=== PATIENT | female | born 1945 | race Caucasian/White ===

== ENCOUNTER 2018-02-19 00:02 | Emergency (ER) | payer MEDICARE, OTHER ==
[2018-02-19] MEDS ORDERED: Sodium Chloride 0.9% 1000 ML 1,000 ML IV STA (00:21)
[2018-02-19] MEDS ORDERED: Pepcid 20 MG VIAL IV ONE ×2 (00:21→00:33)
[2018-02-19] MEDS ORDERED: Zofran 4 MG/2 ML VIAL IV ONE (00:21)
[2018-02-19] MEDS ORDERED: MORPHINE SULFATE 4 MG INJ IV ONE (00:21)
--- NOTE | 2018-02-19 00:21 | ERPHSYRPT ---
- History of Present Illness Time Seen by Provider: 02/19/18 00:16 Historian: patient, EMS Exam Limitations: no limitations Physician History: The patient is a 72-year-old female brought in by ambulance from home where she complains of left-sided abdominal pain that began this evening in addition to 3 episodes of vomiting. She thinks she might have food poisoning. She denies a bowel movement or diarrhea. She has a history of constipation and takes laxatives in the morning and in the evening. She denies chest pain or shortness of breath. She denies sweating. She did not take any pain medicine because she wanted to arrive so we could see her "full blown pain". She denies urinary problems. She denies fever. Her past medical history is significant for hypercalcemia, bone tumor, and hypertension. Timing/Duration: today Activities at Onset: none Quality: aching Abdominal Pain Onset Location: flank (left) Pain Radiation: no radiation Severity of Pain-Max: moderate Severity of Pain-Current: moderate Modifying Factors: Improves With: vomiting Associated Symptoms: nausea, vomiting, No chest pain, No diarrhea, No shortness of breath, No syncope Previous symptoms: no prior history Allergies/Adverse Reactions: Penicillins Allergy (Verified 04/19/14 10:16) Sulfa (Sulfonamide Antibiotics) Allergy (Verified 04/19/14 05:57) Home Medications: Alendronate Sodium 70 mg [Fosamax 70 MG] 70 mg PO UD 05/14/14 [History] Bisoprolol/Hydrochlorothiazide [Bisoprolol-Hctz 10-6.25 mg Tab] 1 each PO DAILY 05/14/14 [History] Calcium Carbonate/Vitamin D3 [Calcium 600 + Vit D Caplet] 1 each PO UD 05/14/14 [History] Hydrocodone Bit/Acetaminophen [Hydrocodon-Acetaminophen 5-325] 1 each PO UD 01/16 [History] Hx Tetanus, Diphtheria Vaccination/Date Given: No Hx Influenza Vaccination/Date Given: No Hx Pneumococcal Vaccination/Date Given: No - Review of Systems Constitutional: No Fever, No Chills Eyes: No Symptoms Ears, Nose, & Throat: No Symptoms Respiratory: No Cough, No Dyspnea Cardiac: No Chest Pain, No Edema, No Syncope Abdominal/Gastrointestinal: Abdominal Pain, Nausea, Vomiting, Constipation, No Diarrhea Genitourinary Symptoms: No Dysuria Musculoskeletal: No Back Pain, No Neck Pain Skin: No Rash Neurological: No Dizziness, No Focal Weakness, No Sensory Changes Psychological: No Symptoms Endocrine: No Symptoms Hematologic/Lymphatic: No Symptoms Immunological/Allergic: No Symptoms All Other Systems: Reviewed and Negative - Past Medical History Pertinent Past Medical History: Yes Neurological History: No Pertinent History ENT History: No Pertinent History Cardiac History: Hypertension Respiratory History: Other Endocrine Medical History: Other Musculoskeletal History: Osteoarthritis, Osteoporosis GI Medical History: GERD History: No Pertinent History Psycho-Social History: No Pertinent History Female Reproductive Disorders: No Pertinent History Other Medical History: Approx 10 years s/p skin cancer removed from the back. Daughter stated that they found some growths possible on the thyroid just recently. Was just admitted in April for high calcium. - Past Surgical History Past Surgical History: Yes Neuro Surgical History: No Pertinent History Cardiac: No Pertinent History Respiratory: Other Musculoskeletal: No Pertinent History Female Surgical History: Section, Other Other Surgical History: D&C. 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 - Social History Smoking Status: Never smoker Exposure to second hand smoke: No Drug Use: none Patient Lives Alone: No - Nursing Vital Signs Nursing Vital Signs: Initial Vital Signs Temperature 99.5 F 02/19/18 00:03 Pulse Rate 74 02/19/18 00:03 Respiratory Rate 22 02/19/18 00:03 Blood Pressure 169/76 02/19/18 00:03 O2 Sat by Pulse Oximetry 99 02/19/18 00:03 Pain Scale Pain Intensity 8 - Physical Exam General Appearance: no apparent distress, alert Eye Exam: PERRL/EOMI, eyes nml inspection Ears, Nose, Throat Exam: normal ENT inspection, pharynx normal, moist mucous membranes Neck Exam: normal inspection, non-tender, supple, full range of motion Respiratory Exam: normal breath sounds, lungs clear, No respiratory distress Cardiovascular Exam: regular rate/rhythm, normal heart sounds Gastrointestinal/Abdomen Exam: tenderness (mild tenderness to left flank) Pelvic Exam: not done Rectal Exam: not done Back Exam: normal inspection, normal range of motion, No CVA tenderness, No vertebral tenderness Extremity Exam: normal inspection, normal range of motion, pelvis stable Neurologic Exam: alert, oriented x 3, cooperative, normal mood/affect, nml cerebellar function, sensation nml, No motor deficits Skin Exam: normal color, warm, dry SpO2 Interpretation: normal Oxygen Delivery: Room Air - Course EKG Interpreted by Me: RATE, Sinus Rhythm, NORMAL AXIS, NORMAL INTERVALS, NORMAL QRS, NORMAL ST-T, Other (comp EKG 05/16/14.) - CT Exams Abdomen/Pelvis CT Interpretation: Tele-radiologist Report (per Dr Garcia), Other (large obstructing stone in left uretropelvic junction; moderate left hydronephrosis wirh perinephric fat stranding.) Ordered Tests: Active Orders 24 hr Category Date Time Status Clean Catch Urine Specimen STAT Care 02/19/18 00:21 Active EKG-ER Only STAT Care 02/19/18 00:21 Active IV Insertion STAT Care 02/19/18 00:21 Active ABDOMEN AND PELVIS W/0 CONTRAS [CT] Stat Exams 02/19/18 00:22 Taken AMYLASE Stat Lab 02/19/18 00:20 Completed CBC W DIFF Stat Lab 02/19/18 00:20 Completed CMP Stat Lab 02/19/18 00:20 Completed LIPASE Stat Lab 02/19/18 00:20 Completed Lactic Acid Stat Lab 02/19/18 00:21 Results TROPONIN Q3H Lab 02/19/18 00:20 Completed TROPONIN Q3H Lab 02/19/18 03:30 Ordered TROPONIN Q3H Lab 02/19/18 06:30 Ordered TROPONIN Q3H Lab 02/19/18 09:30 Ordered TROPONIN Q3H Lab 02/19/18 12:30 Ordered UA W/RFX UR CULTURE Stat Lab 02/19/18 01:45 Received Medication Summary Generic Name Dose Route Start Last Admin Trade Name Freq PRN Reason Stop Dose Admin Potassium Chloride 20 meq in 100 mls @ 50 mls/hr 02/19/18 00:47 02/19/18 01: 21 Potassium Chloride 20 Meq In Water 100ml IV 02/19/18 02:46 50 mls/hr STAT ONE Administration Discontinued Medications Generic Name Dose Route Start Last Admin Trade Name Freq PRN Reason Stop Dose Admin Famotidine 20 mg 02/19/18 00:21 02/19/18 00:40 Pepcid 20 Mg Vial IV 02/19/18 00:22 20 mg STAT ONE Administration Famotidine Confirm 02/19/18 00:33 Pepcid 20 Mg Vial Administered 02/19/18 00:34 Dose 20 mg IV .STK-MED ONE Sodium Chloride 1,000 mls @ 999 mls/hr 02/19/18 00:21 02/19/18 00:44 Sodium Chloride 0.9% 1000 Ml IV 02/19/18 01:21 999 mls/hr .Q1H1M STA Administration Sodium Chloride Confirm 02/19/18 00:33 Sodium Chloride 0.9% 1000 Ml Administered 02/19/18 00:34 Dose 1,000 mls @ ud .ROUTE .STK-MED ONE Potassium Chloride Confirm 02/19/18 01:18 Potassium Chloride 20 Meq In Water 100ml Administered 02/19/18 01:19 Dose 100 mls @ ud IV .STK-MED ONE Morphine Sulfate 4 mg 02/19/18 00:21 02/19/18 00:40 Morphine Sulfate 4 Mg Inj IV 02/19/18 00:22 4 mg STAT ONE Administration Morphine Sulfate Confirm 02/19/18 00:33 Morphine Sulfate 4 Mg Inj Administered 02/19/18 00:34 Dose 4 mg .ROUTE .STK-MED ONE Ondansetron HCl 4 mg 02/19/18 00:21 02/19/18 00:39 Zofran 4 Mg/2 Ml Vial IV 02/19/18 00:22 4 mg STAT ONE Administration Ondansetron HCl Confirm 02/19/18 00:33 Zofran 4 Mg/2 Ml Vial Administered 02/19/18 00:34 Dose 4 mg .ROUTE .STK-MED ONE Lab/Rad Data: Laboratory Result Diagrams 02/19/18 00:20 02/19/18 00:20 Laboratory Results 02/19/18 02/19/18 02/19/18 Range/Units 00:21 00:20 00:20 WBC (4.0-10.5) K/mm3 RBC (4.1-5.4) M/mm3 Hgb (12.0-16.0) gm/dl Hct (35-47) % MCV (78-100) fl MCH (26-32) pg MCHC (32-36) g/dl RDW (11.5-14.0) % Plt Count (150-450) K/mm3 MPV (6-9.5) fl Gran % (36.0-66.0) % Eos # (Auto) (0-0.5) Absolute Lymphs (auto) (1.0-4.6) Absolute Monos (auto) (0.0-1.3) Lymphocytes % (24.0-44.0) % Monocytes % (0.0-12.0) % Eosinophils % (0.00-5.0) % Basophils % (0.0-0.4) % Absolute Granulocytes (1.4-6.9) Basophils # (0-0.4) Sodium 137 (137-145) mmol/L Potassium 3.1 L (3.5-5.1) mmol/L Chloride 101 (98-107) mmol/L Carbon Dioxide 25 (22-30) mmol/L Anion Gap 14.0 (5-15) MEQ/L BUN 26 H (7-17) mg/dL Creatinine 1.13 H (0.52-1.04) mg/dL Estimated GFR 50.6 ML/MIN Glucose 112 H (74-106) mg/dL Lactic Acid 3.4 H (0.4-2.0) Calcium 10.8 H (8.4-10.2) mg/dL Total Bilirubin 0.90 (0.2-1.3) mg/dL AST 24 (14-36) U/L ALT 18 (0-35) U/L Alkaline Phosphatase 87 (38-126) U/L Troponin I < 0.012 (0.000-0.034) ng/mL Serum Total Protein 6.1 L (6.3-8.2) g/dL Albumin 4.0 (3.5-5.0) g/dL Amylase 92 (30-110) U/L Lipase 220 (23-300) U/L 02/19/18 Range/Units 00:20 WBC 12.2 H (4.0-10.5) K/mm3 RBC 4.35 (4.1-5.4) M/mm3 Hgb 13.1 (12.0-16.0) gm/dl Hct 39.1 (35-47) % MCV 89.9 (78-100) fl MCH 30.1 (26-32) pg MCHC 33.5 (32-36) g/dl RDW 13.4 (11.5-14.0) % Plt Count 208 (150-450) K/mm3 MPV 11.3 H (6-9.5) fl Gran % 97.4 H (36.0-66.0) % Eos # (Auto) 0.02 (0-0.5) Absolute Lymphs (auto) 0.17 L (1.0-4.6) Absolute Monos (auto) 0.11 (0.0-1.3) Lymphocytes % 1.4 L (24.0-44.0) % Monocytes % 0.9 (0.0-12.0) % Eosinophils % 0.2 (0.00-5.0) % Basophils % 0.1 (0.0-0.4) % Absolute Granulocytes 11.89 H (1.4-6.9) Basophils # 0.01 (0-0.4) Sodium (137-145) mmol/L Potassium (3.5-5.1) mmol/L Chloride (98-107) mmol/L Carbon Dioxide (22-30) mmol/L Anion Gap (5-15) MEQ/L BUN (7-17) mg/dL Creatinine (0.52-1.04) mg/dL Estimated GFR ML/MIN Glucose (74-106) mg/dL Lactic Acid (0.4-2.0) Calcium (8.4-10.2) mg/dL Total Bilirubin (0.2-1.3) mg/dL AST (14-36) U/L ALT (0-35) U/L Alkaline Phosphatase (38-126) U/L Troponin I (0.000-0.034) ng/mL Serum Total Protein (6.3-8.2) g/dL Albumin (3.5-5.0) g/dL Amylase (30-110) U/L Lipase (23-300) U/L - Progress Progress: improved Progress Note: 02/19/18 02:[address] Ladd and Dr Parikh at [facility]. Drs accept pt. - Departure Time of Disposition: 02:11 Departure Disposition: Transfer (Transfer to [facility] ER per Dario Ladd and Jl.) Clinical Impression: Kidney stone on left side, Hypokalemia Condition: Stable Critical Care Time: No Referrals: MATHEW PATEL MD [NON-STAFF PHY W/O PRIVILEGES] -
[2018-02-19] MEDS ORDERED: Zofran 4 MG/2 ML VIAL ONE (00:33)
[2018-02-19] MEDS ORDERED: Sodium Chloride 0.9% 1000 ML 1,000 ML ONE (00:33)
[2018-02-19] MEDS ORDERED: MORPHINE SULFATE 4 MG INJ ONE (00:33)
[2018-02-19 00:34] LABS: Lactic Acid 3.4 (0.4-2.0)
[2018-02-19 00:37] LABS: BASOPHIL % 0.1 % (0.0-0.4); Basophil (Absolute #) 0.01 (0-0.4); Eosinophil % 0.2 % (0.00-5.0); Eosinophil (Absolute #) 0.02 (0-0.5); Granulocyte Absolute (ANC) 11.89 (1.4-6.9); Granulocytes % 97.4 % (36.0-66.0); Hematocrit 39.1 % (35-47); Hemoglobin 13.1 gm/dl (12.0-16.0); Lymphocyte (Absolute #) 0.17 (1.0-4.6); Lymphocytes % 1.4 % (24.0-44.0); Mean Cell Volume 89.9 fl (78-100); Mean Corpuscular Hemoglobin 30.1 pg (26-32); Mean Corpuscular Hgb Concent. 33.5 g/dl (32-36); Mean Platelet Volume 11.3 fl (6-9.5); Monocyte (Absolute #) 0.11 (0.0-1.3); Monocytes % 0.9 % (0.0-12.0); Platelet Count 208 K/mm3 (150-450); Red Blood Count 4.35 M/mm3 (4.1-5.4); Red Cell Distribution Width 13.4 % (11.5-14.0); White Blood Count 12.2 K/mm3 (4.0-10.5)
[2018-02-19] MEDS ORDERED: POTASSIUM CHLORIDE 20 mEq IN WATER 100ML 20 MEQ/100 ML BAG IV ONE (00:47)
[2018-02-19 00:51] LABS: BILIRUBIN,TOTAL 0.9 mg/dL (0.2-1.3); Calcium 10.8 mg/dL (8.4-10.2); Creatinine 1 1.13 mg/dL (0.52-1.04); Potassium 3.1 mmol/L (3.5-5.1); Total Protein 6.1 g/dL (6.3-8.2)
[2018-02-19] MEDS ORDERED: POTASSIUM CHLORIDE 20 mEq IN WATER 100ML 100 ML IV ONE (01:18)
[2018-02-19] MEDS ORDERED: ROCEPHIN 1 Gm-D5w 50 ml Bag** 1 G/50 ML IVPB IV STA (02:12)
[2018-02-19 02:17] LABS: Appearance CLOUDY (CLEAR); Bilirubin NEGATIVE (NEGATIVE); Blood MODERATE Ery/ul (0-5); Glucose NEGATIVE (NEGATIVE); Ketones TRACE (NEGATIVE); Leukocyte Esterase LARGE (NEGATIVE); Nitrite POSITIVE (NEGATIVE); Protein,Urine Dip 30 (Negative); Specific Gravity 1.016 (1.005-1.025); Urobilinogen NEGATIVE mg/dL (0-1)
[2018-02-19] MEDS ORDERED: ROCEPHIN 1 Gm-D5w 50 ml Bag** 1 G/50 ML IVPB IV ONE (02:22)
[2018-02-19 02:37] VITALS: BP 136/84; PULSE 84; O2SAT 97
--- NOTE | 2018-02-19 10:42 | XRAY ---
Indication: Left upper quadrant pain. Nausea and vomiting. Multiple contiguous axial images obtained through the abdomen and pelvis without contrast as ordered. Comparison: May 15, 2014. Lung bases demonstrates scattered bibasilar atelectasis/scarring. Left lung base 2-3 mm noncalcified subpleural nodularity incompletely visualized and potentially obscured by previous pleural parenchymal opacity. No infiltrate or effusion. Heart is not enlarged. New small hiatal hernia. Noncontrasted stomach and bowel loops appear nonobstructed. Descending and sigmoid colon now demonstrates circumferential wall thickening with minimal stranding favoring colitis. No free fluid/air. Minimal sigmoid diverticulosis. New 8-9 mm proximal left ureter calculus, approximately L3 level. Left kidney is also moderately hydronephrotic with perinephric stranding/fluid consistent with obstructive uropathy additional bilateral renal medical calculi. Stable 2 cm left adrenal adenoma, hepatic/splenic calcified granulomas, and 1.5 cm caudate lobe hepatic cyst. New tiny gallstone. Remaining liver, gallbladder, pancreas, spleen, adrenal glands, kidneys, ureters, bladder, and uterus appear unremarkable for noncontrast exam. Mild aortoiliac calcifications without AAA Osseous structures intact again with osteopenia, moderate/advanced multilevel degenerative spondylosis, and moderate levorotoscoliosis. Slight increasing round 10 mm right innominate sclerotic lesion, previously 5 mm. No ventral or inguinal hernias. Impression: 1. New 8-9 mm maximal left ureter calculus producing high-grade obstruction. Additional bilateral renal micro-calculi. 2. New descending and sigmoid bowel wall thickening with minimal stranding. Rule out colitis. Minimal sigmoid diverticulosis. 3. New hiatal hernia and tiny gallstone. 4. Stable hepatic cyst, left adrenal adenoma, and evidence for old granulomatous disease. 5. Increasing right innominate round sclerotic lesion. Nuclear medicine bone scan may yield further information if clinically warranted. Comment: Preliminary interpretation was made by [facility]. No critical discrepancy. CTDI 20.15
== END 2018-02-19 03:00 | disposition short-term general hospital (02) ==
LOC: ED 00:02
DX: N20.0 Calculus of kidney (principal); E87.6 Hypokalemia; R11.2 Nausea with vomiting, unspecified; Z79.899 Other long term (current) drug therapy; K59.00 Constipation, unspecified
CPT/HCPCS: 36000; 36415; 74176; 80053; 81001; 82150; 83605; 83690; 84484; 85025; 87077; 87086; 87186; 93005; 96360; 96365; 96367; 96374; 96375; 99285; J0696; J2270; J2405; J3480

== ENCOUNTER 2019-05-06 18:07 | Emergency (ER) | payer MEDICARE, OTHER ==
[2019-05-06] MEDS ORDERED: Sodium Chloride 0.9% 1000 ML 1,000 ML IV STA (18:25)
[2019-05-06] MEDS ORDERED: Sodium Chloride 0.9% 1000 ML 1,000 ML ONE (18:38)
--- NOTE | 2019-05-06 18:43 | ERPHSYRPT ---
- History of Present Illness Source: patient, family, EMS Exam Limitations: clinical condition Patient Subjective Stated Complaint: EMS states "Family told us they found her on the floor, unknown how long she had been there. She is alert to name but cannot answer quite a few questions. I attempted an IV without success. she has had a cough for a week according to family". Pt states "I hurt." Triage Nursing Assessment: Pt presented alert and confused, Pt knows her name, is tense and clenching her hands and arms. Pt able to speak in clear full sentence PT has intermittant cough. Timing/Duration: day(s) (4) Deficits: weak Baseline/Normal Cognition: alert but confused Current Cognition: alert oriented x 3 Associated Symptoms: confusion Hx Influenza Vaccination/Date Given: (unknown) Hx Pneumococcal Vaccination/Date Given: (unknown) Immunizations Up to Date: (unknown) <LIDA WASHINGTON - Last Filed: 05/06/19 18:38> <BRE HEAD - Last Filed: 05/06/19 21:31> - History of Present Illness Time Seen by Provider: 05/06/19 18:25 Physician History: Apparently confused and altered mental status for 4 dayys. PMH benign. Found on floor weds by sister refused to go to hosp. Today confused annd urinate and stooled of floor. found naked by daughter (LIDA WASHINGTON) Allergies/Adverse Reactions: Penicillins Allergy (Verified 04/19/14 10:16) Sulfa (Sulfonamide Antibiotics) Allergy (Verified 04/19/14 05:57) Home Medications: Alendronate Sodium 70 mg [Fosamax 70 MG] 70 mg PO UD 05/14/14 [History] Bisoprolol/Hydrochlorothiazide [Bisoprolol-Hctz 10-6.25 mg Tab] 1 each PO DAILY 05/14/14 [History] Calcium Carbonate/Vitamin D3 [Calcium 600 + Vit D Caplet] 1 each PO UD 05/14/14 [History] - Review of Systems All Other Systems: Unable due to condition <LIDA WASHINGTON - Last Filed: 05/06/19 18:38> - Past Medical History Pertinent Past Medical History: Yes Neurological History: No Pertinent History ENT History: No Pertinent History Cardiac History: Hypertension Respiratory History: Other Endocrine Medical History: Other Musculoskeletal History: Osteoarthritis, Osteoporosis GI Medical History: GERD History: No Pertinent History Psycho-Social History: No Pertinent History Female Reproductive Disorders: No Pertinent History Other Medical History: Approx 10 years s/p skin cancer removed from the back. Daughter stated that they found some growths possible on the thyroid just recently. Was just admitted in April for high calcium. - Past Surgical History Past Surgical History: Yes Neuro Surgical History: No Pertinent History Cardiac: No Pertinent History Respiratory: Other Musculoskeletal: No Pertinent History Female Surgical History: Section, Other Other Surgical History: D&C. 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 - Social History Smoking Status: Never smoker Exposure to second hand smoke: Yes Drug Use: none Patient Lives Alone: Yes <LIDA WASHINGTON - Last Filed: 05/06/19 18:38> - Luz Coma Scale Best Eye Response (Luz): (4) open spontaneously Best Verbal Response ([place]): (4) confused conversation Best Motor Response (Luz): (6) obeys commands Luz Total: 14 - Physical Exam General Appearance: mild distress Eye Exam: bilateral eye: PERRL, EOMI Ears, Nose, Throat Exam: normal ENT inspection, moist mucous membranes Neck Exam: supple, full range of motion, other (Prominent R carotid pulse) Respiratory: crackles/rales (bilateral bases) Cardiovascular: regular rate/rhythm Gastrointestinal: soft, No tenderness, No distention Back Exam: normal inspection Extremity Exam: normal inspection, No pedal edema Peripheral Pulses: carotid (R): 2+, carotid (L): 2+ Mental Status: alert, disoriented to time, other (amnestic) gas fitter apprentice Exam: normal speech, PERRL, No facial asymmetry, No facial droop, No facial weakness Coordination/Gait: normal cerebellar function Motor/Sensory: no motor deficit, no pronator drift Skin Exam: normal color, warm, dry SpO2 Interpretation: normal SpO2: 95 O2 Delivery: Room Air <LIDA WASHINGTON - Last Filed: 05/06/19 18:38> - Nursing Vital Signs Nursing Vital Signs: Initial Vital Signs Temperature 98.4 F 05/06/19 18:12 Pulse Rate 87 05/06/19 18:12 Respiratory Rate 20 05/06/19 18:12 Blood Pressure 159/98 05/06/19 18:12 O2 Sat by Pulse Oximetry 95 05/06/19 18:12 Pain Scale Pain Intensity 4 - Course Nursing assessment & vital signs reviewed: Yes <LIDA WASHINGTON - Last Filed: 05/06/19 18:38> - Course Nursing assessment & vital signs reviewed: Yes EKG Interpreted by Me: RATE (77), Sinus Rhythm, Non-specific ST Changes, Other ( LAFB) - Radiology Exams Chest X-ray Interpretation: Reviewed by me, Negative - CT Exams Head CT Interpretation: Tele-radiologist Report, Other (Ventriculomegaly, NPH???) <BRE HEAD - Last Filed: 05/06/19 21:31> Ordered Tests: Active Orders 24 hr Category Date Time Status EKG-ER Only STAT Care 05/06/19 18:22 Active NPO (ED) STAT Care 05/06/19 18:23 Active CHEST 1 VIEW (PORTABLE) Stat Exams 05/06/19 18:46 Taken HEAD WITHOUT CONTRAST [CT] Stat Exams 05/06/19 18:23 Taken ACETAMINOPHEN Stat Lab 05/06/19 19:43 Completed AMYLASE Stat Lab 05/06/19 19:43 Completed BLOOD CULTURE Stat Lab 05/06/19 19:43 Received CBC W DIFF Stat Lab 05/06/19 18:22 Completed CK-Creatinine Phosphokinase Stat Lab 05/06/19 19:43 Completed CMP Stat Lab 05/06/19 19:43 Completed ETHYL ALCOHOL Stat Lab 05/06/19 19:43 Completed LIPASE Stat Lab 05/06/19 19:43 Completed Lactic Acid Stat Lab 05/06/19 19:38 Completed PROTIME WITH INR Stat Lab 05/06/19 19:43 Completed PTT Stat Lab 05/06/19 19:43 Completed SALICYLATE Stat Lab 05/06/19 19:43 Completed TROPONIN Q3H Lab 05/06/19 19:43 Completed TROPONIN Q3H Lab 05/06/19 21:30 Ordered TROPONIN Q3H Lab 05/07/19 00:30 Ordered TROPONIN Q3H Lab 05/07/19 03:30 Ordered TROPONIN Q3H Lab 05/07/19 06:30 Ordered UA W/RFX UR CULTURE Stat Lab 05/06/19 18:38 Completed Urine Triage Profile Stat Lab 05/06/19 18:38 Completed VENOUS BLOOD GAS Urgent Lab 05/06/19 19:38 Completed Medication Summary Generic Name Dose Route Start Last Admin Trade Name Freq PRN Reason Stop Dose Admin Potassium Chloride/Sodium Chloride 1,000 mls @ 100 mls/hr 05/06/19 20:00 05/24 20:43 Sodium Chloride 0.9% W/ 40 Meq Kcl 1000ml IV 06/05/19 19:59 100 mls/hr .Q10H NELLA Administration Discontinued Medications Generic Name Dose Route Start Last Admin Trade Name Oleg PRN Reason Stop Dose Admin Sodium Chloride 1,000 mls @ 999 mls/hr 05/06/19 18:25 05/06/19 20:43 Sodium Chloride 0.9% 1000 Ml IV 05/06/19 19:25 Infused .Q1H1M STA Infusion Sodium Chloride Confirm 05/06/19 18:38 Sodium Chloride 0.9% 1000 Ml Administered 05/06/19 18:39 Dose 1,000 mls @ ud .ROUTE .STK-MED ONE Lab/Rad Data: Laboratory Result Diagrams 05/06/19 18:22 05/06/19 19:43 Laboratory Results 05/06/19 05/06/19 05/06/19 Range/Units 19:43 19:43 19:43 WBC (4.0-10.5) K/mm3 RBC (4.1-5.4) M/mm3 Hgb (12.0-16.0) gm/dl Hct (35-47) % MCV (78-100) fl MCH (26-32) pg MCHC (32-36) g/dl RDW (11.5-14.0) % Plt Count (150-450) K/mm3 MPV (7.5-11.0) fl Gran % (36.0-66.0) % Eos # (Auto) (0-0.5) Absolute Lymphs (auto) (1.0-4.6) Absolute Monos (auto) (0.0-1.3) Lymphocytes % (24.0-44.0) % Monocytes % (0.0-12.0) % Eosinophils % (0.00-5.0) % Basophils % (0.0-0.4) % Absolute Granulocytes (1.4-6.9) Basophils # (0-0.4) PT 12.4 H (9.95-12.35) SECONDS INR 1.10 (0.8-3.0) APTT 30.9 (25.3-37.0) SECONDS pO2/FiO2 Ratio % VBG pH (7.32-7.42) VBG pCO2 at Pat Temp (42-55) mm/Hg VBG pO2 at Pat Temp (25-40) mm/Hg VBG HCO3 (22-28) meq/L VBG O2 Sat (Lizy) (95-100) VBG Base Excess (-2.0-2.0) VBG Hemoglobin VBG Carboxyhemoglobin (0.0-6.9) % T HGB POC Potassium (3.5-5.1) Sodium 140 (137-145) mmol/L Potassium 2.9 L* (3.5-5.1) mmol/L Chloride 98 (98-107) mmol/L Carbon Dioxide 33 H (22-30) mmol/L Anion Gap 11.8 (5-15) MEQ/L BUN 19 H (7-17) mg/dL Creatinine 0.90 (0.52-1.04) mg/dL Estimated GFR > 60.0 ML/MIN Glucose 107 H (74-106) mg/dL Lactic Acid (0.4-2.0) Calcium 9.5 (8.4-10.2) mg/dL Total Bilirubin 0.60 (0.2-1.3) mg/dL AST 43 H (14-36) U/L ALT 25 (0-35) U/L Alkaline Phosphatase 81 (38-126) U/L Creatine Kinase 103 (30-135) U/L Troponin I < 0.012 (0.000-0.034) ng/mL Serum Total Protein 6.7 (6.3-8.2) g/dL Albumin 4.0 (3.5-5.0) g/dL Amylase 130 H (30-110) U/L Lipase 170 (23-300) U/L Urine Color (YELLOW) Urine Appearance (CLEAR) Urine pH (5-6) Ur Specific Goodrich (1.005-1.025) Urine Protein (Negative) Urine Ketones (NEGATIVE) Urine Blood (0-5) Estuardo/ul Urine Nitrite (NEGATIVE) Urine Bilirubin (NEGATIVE) Urine Urobilinogen (0-1) mg/dL Ur Leukocyte Esterase (NEGATIVE) Urine WBC (Auto) (0-5) /HPF Urine RBC (Auto) (0-2) /HPF U Epithel Cells (Auto) (FEW) /HPF Urine Bacteria (Auto) (NEGATIVE) /HPF Urine Mucus (Auto) (NEGATIVE) /HPF Urine Culture Reflexed (NO) Urine Glucose (NEGATIVE) mg/dL Salicylates < 1.0 L (2-20) mg/dL Urine Opiates Level (NEGATIVE) Ur Methadone (NEGATIVE) Acetaminophen < 10 L (10-30) ug/ml Urine Barbiturates (NEGATIVE) Ur Phencyclidine (PCP) (NEGATIVE) Urine Amphetamine (NEGATIVE) U Benzodiazepine Level (NEGATIVE) Urine Cocaine (NEGATIVE) Urine Marijuana (THC) (NEGATIVE) Ethyl Alcohol < 10 (0-10) mg/dL 05/06/19 05/06/19 05/06/19 Range/Units 19:38 19:38 18:38 WBC (4.0-10.5) K/mm3 RBC (4.1-5.4) M/mm3 Hgb (12.0-16.0) gm/dl Hct (35-47) % MCV (78-100) fl MCH (26-32) pg MCHC (32-36) g/dl RDW (11.5-14.0) % Plt Count (150-450) K/mm3 MPV (7.5-11.0) fl Gran % (36.0-66.0) % Eos # (Auto) (0-0.5) Absolute Lymphs (auto) (1.0-4.6) Absolute Monos (auto) (0.0-1.3) Lymphocytes % (24.0-44.0) % Monocytes % (0.0-12.0) % Eosinophils % (0.00-5.0) % Basophils % (0.0-0.4) % Absolute Granulocytes (1.4-6.9) Basophils # (0-0.4) PT (9.95-12.35) SECONDS INR (0.8-3.0) APTT (25.3-37.0) SECONDS pO2/FiO2 Ratio 21.0 % VBG pH 7.48 H (7.32-7.42) VBG pCO2 at Pat Temp 43 (42-55) mm/Hg VBG pO2 at Pat Temp 20 L (25-40) mm/Hg VBG HCO3 32.0 H* (22-28) meq/L VBG O2 Sat (Lizy) 37.0 L (95-100) VBG Base Excess 7.6 H (-2.0-2.0) VBG Hemoglobin 14.4 VBG Carboxyhemoglobin 1.9 (0.0-6.9) % T HGB POC Potassium 2.8 L* (3.5-5.1) Sodium (137-145) mmol/L Potassium (3.5-5.1) mmol/L Chloride (98-107) mmol/L Carbon Dioxide (22-30) mmol/L Anion Gap (5-15) MEQ/L BUN (7-17) mg/dL Creatinine (0.52-1.04) mg/dL Estimated GFR ML/MIN Glucose (74-106) mg/dL Lactic Acid 0.8 (0.4-2.0) Calcium (8.4-10.2) mg/dL Total Bilirubin (0.2-1.3) mg/dL AST (14-36) U/L ALT (0-35) U/L Alkaline Phosphatase (38-126) U/L Creatine Kinase (30-135) U/L Troponin I (0.000-0.034) ng/mL Serum Total Protein (6.3-8.2) g/dL Albumin (3.5-5.0) g/dL Amylase (30-110) U/L Lipase (23-300) U/L Urine Color (YELLOW) Urine Appearance (CLEAR) Urine pH (5-6) Ur Specific Goodrich (1.005-1.025) Urine Protein (Negative) Urine Ketones (NEGATIVE) Urine Blood (0-5) Estuardo/ul Urine Nitrite (NEGATIVE) Urine Bilirubin (NEGATIVE) Urine Urobilinogen (0-1) mg/dL Ur Leukocyte Esterase (NEGATIVE) Urine WBC (Auto) (0-5) /HPF Urine RBC (Auto) (0-2) /HPF U Epithel Cells (Auto) (FEW) /HPF Urine Bacteria (Auto) (NEGATIVE) /HPF Urine Mucus (Auto) (NEGATIVE) /HPF Urine Culture Reflexed (NO) Urine Glucose (NEGATIVE) mg/dL Salicylates (2-20) mg/dL Urine Opiates Level NEGATIVE (NEGATIVE) Ur Methadone NEGATIVE (NEGATIVE) Acetaminophen (10-30) ug/ml Urine Barbiturates NEGATIVE (NEGATIVE) Ur Phencyclidine (PCP) NEGATIVE (NEGATIVE) Urine Amphetamine NEGATIVE (NEGATIVE) U Benzodiazepine Level NEGATIVE (NEGATIVE) Urine Cocaine NEGATIVE (NEGATIVE) Urine Marijuana (THC) NEGATIVE (NEGATIVE) Ethyl Alcohol (0-10) mg/dL 05/06/19 05/06/19 Range/Units 18:38 18:22 WBC 10.1 (4.0-10.5) K/mm3 RBC 4.64 (4.1-5.4) M/mm3 Hgb 13.6 (12.0-16.0) gm/dl Hct 40.9 (35-47) % MCV 88.1 (78-100) fl MCH 29.3 (26-32) pg MCHC 33.3 (32-36) g/dl RDW 13.5 (11.5-14.0) % Plt Count 205 (150-450) K/mm3 MPV 9.9 (7.5-11.0) fl Gran % 86.2 H (36.0-66.0) % Eos # (Auto) 0.01 (0-0.5) Absolute Lymphs (auto) 0.76 L (1.0-4.6) Absolute Monos (auto) 0.61 (0.0-1.3) Lymphocytes % 7.5 L (24.0-44.0) % Monocytes % 6.1 (0.0-12.0) % Eosinophils % 0.1 (0.00-5.0) % Basophils % 0.1 (0.0-0.4) % Absolute Granulocytes 8.69 H (1.4-6.9) Basophils # 0.01 (0-0.4) PT (9.95-12.35) SECONDS INR (0.8-3.0) APTT (25.3-37.0) SECONDS pO2/FiO2 Ratio % VBG pH (7.32-7.42) VBG pCO2 at Pat Temp (42-55) mm/Hg VBG pO2 at Pat Temp (25-40) mm/Hg VBG HCO3 (22-28) meq/L VBG O2 Sat (Lizy) (95-100) VBG Base Excess (-2.0-2.0) VBG Hemoglobin VBG Carboxyhemoglobin (0.0-6.9) % T HGB POC Potassium (3.5-5.1) Sodium (137-145) mmol/L Potassium (3.5-5.1) mmol/L Chloride (98-107) mmol/L Carbon Dioxide (22-30) mmol/L Anion Gap (5-15) MEQ/L BUN (7-17) mg/dL Creatinine (0.52-1.04) mg/dL Estimated GFR ML/MIN Glucose (74-106) mg/dL Lactic Acid (0.4-2.0) Calcium (8.4-10.2) mg/dL Total Bilirubin (0.2-1.3) mg/dL AST (14-36) U/L ALT (0-35) U/L Alkaline Phosphatase (38-126) U/L Creatine Kinase (30-135) U/L Troponin I (0.000-0.034) ng/mL Serum Total Protein (6.3-8.2) g/dL Albumin (3.5-5.0) g/dL Amylase (30-110) U/L Lipase (23-300) U/L Urine Color YELLOW (YELLOW) Urine Appearance CLEAR (CLEAR) Urine pH 6.0 (5-6) Ur Specific Goodrich 1.016 (1.005-1.025) Urine Protein 30 (Negative) Urine Ketones NEGATIVE (NEGATIVE) Urine Blood NEGATIVE (0-5) Estuardo/ul Urine Nitrite NEGATIVE (NEGATIVE) Urine Bilirubin NEGATIVE (NEGATIVE) Urine Urobilinogen NEGATIVE (0-1) mg/dL Ur Leukocyte Esterase NEGATIVE (NEGATIVE) Urine WBC (Auto) 0-2 (0-5) /HPF Urine RBC (Auto) 0-2 (0-2) /HPF U Epithel Cells (Auto) NONE (FEW) /HPF Urine Bacteria (Auto) NONE (NEGATIVE) /HPF Urine Mucus (Auto) SLIGHT (NEGATIVE) /HPF Urine Culture Reflexed NO (NO) Urine Glucose NEGATIVE (NEGATIVE) mg/dL Salicylates (2-20) mg/dL Urine Opiates Level (NEGATIVE) Ur Methadone (NEGATIVE) Acetaminophen (10-30) ug/ml Urine Barbiturates (NEGATIVE) Ur Phencyclidine (PCP) (NEGATIVE) Urine Amphetamine (NEGATIVE) U Benzodiazepine Level (NEGATIVE) Urine Cocaine (NEGATIVE) Urine Marijuana (THC) (NEGATIVE) Ethyl Alcohol (0-10) mg/dL <LIDA WASHINGTON - Last Filed: 05/06/19 18:38> - Progress Progress: improved Discussed with Dr.: Other (Dr. Yared ADAMSON at [facility]) Counseled pt/family regarding: lab results, diagnosis, need for follow-up, rad results <BRE HEAD - Last Filed: 05/06/19 21:31> - Progress Progress Note: 05/06/19 21:24 Pt is otherwise well. No pain. No confusion. Family at bedside. Ct shows possible NPH. May explain some symptoms. D/w Dr. Guerrero at [facility] and he did not think anything was urgent a this time. Advised ruling out any other diagnoses. Will see her in clinic. D/w pt and family. Relieved. Will call [facility] for follow up. Will supplement K+ and DC home. (BRE HEAD) - Departure Critical Care Time: No <LIDA WASHINGTON - Last Filed: 05/06/19 18:38> - Departure Departure Disposition: Home Critical Care Time: No <BRE HEAD - Last Filed: 05/06/19 21:31> - Departure Clinical Impression: Hypokalemia, Altered mental state Clinical Impression: (Ruled Out): Hydrocephalus Condition: Stable Referrals: GONSALO FRANKEL [Primary Care Provider] - RACHELLE GUERRERO MD [NON-STAFF PHY W/O PRIVILEGES] - Instructions: Hypokalemia (DC), Hydrocephalus (DC) Additional Instructions: Close monitoring. Call Dr. Guerrero in the morning for follow up appt. Assist with ambulation if needed. Potassium rich foods. Return to ER if worse.
[2019-05-06 19:40] LABS: Appearance CLEAR (CLEAR); Bilirubin NEGATIVE (NEGATIVE); Blood NEGATIVE Ery/ul (0-5); Glucose NEGATIVE (NEGATIVE); Ketones NEGATIVE (NEGATIVE); Leukocyte Esterase NEGATIVE (NEGATIVE); Mucus SLIGHT /HPF (NEGATIVE); Nitrite NEGATIVE (NEGATIVE); Protein,Urine Dip 30 (Negative); RBC 0-2 /HPF (0-2); Specific Gravity 1.016 (1.005-1.025); Urobilinogen NEGATIVE mg/dL (0-1); WBC 0-2 /HPF (0-5)
[2019-05-06 19:40] LABS: Absolute Neutrophil Ct (ANC) 8.69 (1.4-6.9); BASOPHIL % 0.1 % (0.0-0.4); Basophil (Absolute #) 0.01 (0-0.4); Eosinophil % 0.1 % (0.00-5.0); Eosinophil (Absolute #) 0.01 (0-0.5); Hematocrit 40.9 % (35-47); Hemoglobin 13.6 gm/dl (12.0-16.0); Lymphocyte (Absolute #) 0.76 (1.0-4.6); Lymphocytes % 7.5 % (24.0-44.0); Mean Cell Volume 88.1 fl (78-100); Mean Corpuscular Hemoglobin 29.3 pg (26-32); Mean Corpuscular Hgb Concent. 33.3 g/dl (32-36); Mean Platelet Volume 9.9 fl (7.5-11.0); Monocyte (Absolute #) 0.61 (0.0-1.3); Monocytes % 6.1 % (0.0-12.0); Neutrophil % 86.2 % (36.0-66.0); Platelet Count 205 K/mm3 (150-450); Red Blood Count 4.64 M/mm3 (4.1-5.4); Red Cell Distribution Width 13.5 % (11.5-14.0); White Blood Count 10.1 K/mm3 (4.0-10.5)
[2019-05-06 19:43] LABS: Amphetamine,Urine NEGATIVE (NEGATIVE); Barbiturate,Urine NEGATIVE (NEGATIVE); Benzodiazepine,Urine NEGATIVE (NEGATIVE); Cocaine,Urine NEGATIVE (NEGATIVE); Methadone,Urine NEGATIVE (NEGATIVE); Opiate,Urine NEGATIVE (NEGATIVE); PCP,Urine NEGATIVE (NEGATIVE); THC,Urine NEGATIVE (NEGATIVE)
[2019-05-06 19:45] LABS: VBG BASE EXCESS 7.6 (-2.0-2.0); VBG CARBOXYHEMOGLOBIN 1.9 % T HGB (0.0-6.9); VBG HEMOGLOBIN 14.4; VBG pH 7.48 (7.32-7.42)
[2019-05-06 19:46] LABS: VBG POTASSIUM 2.8 (3.5-5.1)
[2019-05-06 19:48] LABS: INR 1.1 (0.8-3.0); PROTIME 12.4 SECONDS (9.95-12.35)
[2019-05-06 19:51] LABS: PTT 30.9 SECONDS (25.3-37.0)
[2019-05-06 19:53] LABS: ALKALINE PHOSPHATASE 81 U/L (38-126); AMYLASE 130 U/L (30-110); ANION GAP 11.8 MEQ/L (5-15); BLOOD UREA NITROGEN 19 mg/dL (7-17); CHLORIDE 98 mmol/L (98-107); CK-Creatinine Phosphokinase 103 U/L (30-135); Calcium 9.5 mg/dL (8.4-10.2); Carbon Dioxide 33 mmol/L (22-30); Glucose 107 mg/dL (74-106); LIPASE 170 U/L (23-300); SGOT/AST 43 U/L (14-36); SGPT/ALT 25 U/L (0-35); SODIUM 140 mmol/L (137-145); Total Protein 6.7 g/dL (6.3-8.2)
[2019-05-06 19:54] LABS: ACETAMINOPHEN < 10 ug/ml (10-30); ETHYL ALCOHOL < 10 mg/dL (0-10); Potassium 2.9 mmol/L (3.5-5.1); SALICYLATE < 1.0 mg/dL (2-20)
[2019-05-06] MEDS ORDERED: SODIUM CHLORIDE 0.9% W/ 40 mEq KCL 1000ML 1,000 ML IV SCH (20:00)
[2019-05-06] MEDS ORDERED: SODIUM CHLORIDE 0.9% W/ 40 mEq KCL 1000ML 1,000 ML IV ONE (20:25)
[2019-05-06] MEDS ORDERED: K-LYTE 25 MEQ PO ONE (21:33)
[2019-05-06] MEDS ORDERED: K-LYTE 25 MEQ ONE (21:35)
[2019-05-06 21:56] VITALS: BP 154/89; PULSE 76; O2SAT 96
--- NOTE | 2019-05-07 08:39 | XRAY ---
Indication: Acute mental status change. Multiple contiguous axial images obtained through the head without contrast. Comparison: May 14, 2014. There is again age-appropriate global atrophy and mild periventricular degenerative micro-ischemia bilaterally. Progressive worsening diffuse ventriculomegaly either related to cerebral atrophy versus normal pressure hydrocephalus. New left cerebral peduncle remote lacunar infarct. No acute intracranial hemorrhage, abnormal extra-axial fluid collection, or mass effect. Fourth ventricle is midline. Bony calvarium intact. Visualized paranasal sinuses and mastoid air cells are clear. Impression: 1. Increasing ventriculomegaly either related to cerebral atrophy versus normal pressure hydrocephalus. 2. Incidental degenerative micro-ischemia and new left cerebral peduncle remote lacunar infarct. 3. No acute intracranial abnormalities. Comment: Preliminary interpretation was made by [facility]. No critical discrepancy.
--- NOTE | 2019-05-07 08:40 | XRAY ---
Indication: Cough. Comparison: May 16, 2014. Portable chest demonstrates minimal left base infiltrate versus atelectasis with overlying suture material/surgical clips previously obscured. Remaining heart and lungs unremarkable. Bony thorax intact again with osteopenia, degenerative changes, and dextroscoliosis.
== END 2019-05-06 21:58 | disposition home or self-care (01) ==
LOC: ED 18:07
DX: E87.6 Hypokalemia (principal); R41.82 Altered mental status, unspecified; I10 Essential (primary) hypertension; M19.90 Unspecified osteoarthritis, unspecified site; M81.0 Age-related osteoporosis without current pathological fracture; K21.9 Gastro-esophageal reflux disease without esophagitis; Z79.899 Other long term (current) drug therapy
CPT/HCPCS: 36000; 36415; 70450; 71045; 80053; 80307; 81001; 82150; 82550; 82805; 83605; 83690; 84484; 85025; 85610; 85730; 87040; 93005; 96360; 96361; 99284; G0480; G0481; A9270-GY

== ENCOUNTER 2020-06-19 19:55 | Emergency (ER) | payer MEDICARE ==
--- NOTE | 2020-06-19 19:58 | ERPHSYRPT ---
- History of Present Illness Time Seen by Provider: 06/19/20 19:58 Source: patient Exam Limitations: no limitations Physician History: This is a 75-year-old white female who was in her bedroom and turned and lost her balance and fell on her outstretched right hand. She immediately had pain in her right wrist and there was some deformity. She was brought in the emergency room for evaluation. She did not hit her head she did not lose consciousness. She has no neck pain. Occurred: just prior to arrival Method of Injury: fell Quality: aching, throbbing Severity of Pain-Max: moderate Severity of Pain-Current: moderate Extremities Pain Location: wrist: right Modifying Factors: Improves With: movement Associated Symptoms: none Allergies/Adverse Reactions: Penicillins Allergy (Verified 06/19/20 20:14) Sulfa (Sulfonamide Antibiotics) Allergy (Verified 06/19/20 20:14) Home Medications: Alendronate Sodium 70 mg [Fosamax 70 MG] 70 mg PO UD 05/14/14 [History] Bisoprolol/Hydrochlorothiazide [Bisoprolol-Hctz 10-6.25 mg Tab] 1 each PO DAILY 05/14/14 [History] Calcium Carbonate/Vitamin D3 [Calcium 600 + Vit D Caplet] 1 each PO UD 05/14/14 [History] Hx Tetanus, Diphtheria Vaccination/Date Given: (unknown) Hx Influenza Vaccination/Date Given: (unknown) Hx Pneumococcal Vaccination/Date Given: (unknown) Travel Risk - International Travel Have you traveled outside of the country in past 3 weeks: No - Coronavirus Screening Are you exhibiting any of the following symptoms?: No Close contact with a COVID-19 positive Pt in past 14-21 Days: No - Review of Systems Constitutional: No Symptoms Eyes: No Symptoms Ears, Nose, & Throat: No Symptoms Respiratory: No Symptoms Cardiac: No Symptoms Abdominal/Gastrointestinal: No Symptoms Genitourinary Symptoms: No Symptoms Musculoskeletal: Deformity (Right wrist), Fall (Right wrist injury), Injury (Right wrist), Joint Pain (Right wrist) Neurological: No Symptoms Psychological: No Symptoms Endocrine: No Symptoms Hematologic/Lymphatic: No Symptoms Immunological/Allergic: No Symptoms All Other Systems: Reviewed and Negative - Past Medical History Pertinent Past Medical History: Yes Neurological History: Stroke, Other ENT History: No Pertinent History Cardiac History: Hypertension Respiratory History: Lung Cancer Endocrine Medical History: Other Musculoskeletal History: Fractures, Osteoarthritis, Osteoporosis GI Medical History: GERD History: No Pertinent History Psycho-Social History: No Pertinent History Female Reproductive Disorders: No Pertinent History Other Medical History: CT 05/06/19 COMPARED TO STUDY 05/2014 SHOWED INCREASE VENTRICULOMEGALY, DENERGATIVE MICRO-ISCHEMIA, LEFT CEREBRAL PEDUNCLE LACUNAR INFARCT. PATIENT REPORTS HAD PART OF LUNG AND ONE RIB REMOVED DUE TO BEING "EATEN AWAY" (PATIENT STATES 4 YEARS AGO, BASED ON MEDICAL RECORD 04/2014). 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 FRACTURED LEFT ANKLE 1993 - NO SURGERY BUT "WAS SET WRONG" SO LEFT LEG IS SHORTER. RIGHT WRIST FX X 2 WITH HX OF ORIF - Past Surgical History Past Surgical History: Yes Neuro Surgical History: No Pertinent History Cardiac: No Pertinent History Respiratory: Other Musculoskeletal: No Pertinent History Female Surgical History: Section, Other Other Surgical History: D&C. 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 - Social History Smoking Status: Never smoker Exposure to second hand smoke: Yes Drug Use: none Patient Lives Alone: Yes - Nursing Vital Signs Nursing Vital Signs: Initial Vital Signs Temperature 98.7 F 06/19/20 19:56 Pulse Rate 64 06/19/20 19:56 Respiratory Rate 20 06/19/20 19:56 Blood Pressure 213/88 06/19/20 19:56 O2 Sat by Pulse Oximetry 99 06/19/20 19:56 Pain Scale Pain Intensity 9 - Physical Exam General Appearance: no apparent distress, alert, anxiety Eyes, Ears, Nose, Throat Exam: normal ENT inspection, moist mucous membranes Neck Exam: normal inspection, non-tender, supple, full range of motion Cardiovascular/Respiratory Exam: chest non-tender, no respiratory distress Abdominal Exam: non-tender Back Exam: normal inspection, normal range of motion, No CVA tenderness, No vertebral tenderness Shoulder Exam: normal inspection, non-tender, no evidence of injury, normal ROM Elbow/Forearm Exam: normal inspection, non-tender, no evidence of injury, normal ROM Wrist Exam: bone tenderness (Wrist right side), deformity (Right wrist), ecchymosis (Right wrist), limited ROM, soft tissue tenderness, swelling Hand Exam: normal inspection, non-tender, no evidence of injury, normal ROM Neuro/Tendon Exam: normal sensation, normal motor functions, normal tendon functions, responds to pain, no evidence tendon injury Mental Status Exam: alert, oriented x 3, cooperative Skin Exam: normal color, warm, dry SpO2 Interpretation: normal O2 Delivery: Room Air - Course Nursing assessment & vital signs reviewed: Yes Ordered Tests: Active Orders 24 hr Category Date Time Status Splint STAT Care 06/19/20 20:51 Active FOREARM Stat Exams 06/19/20 20:13 Taken WRIST (MIN 3 VIEWS) Stat Exams 06/19/20 20:13 Taken Medication Summary Discontinued Medications Generic Name Dose Route Start Last Admin Trade Name Oleg PRN Reason Stop Dose Admin Hydrocodone Bitart/Acetaminophen 2 tab 06/19/20 20:50 Witt 5/325 Mg PO 06/19/20 20:51 SENT HOME W/ PATIENT ONE Oxycodone/Acetaminophen 1 tab 06/19/20 20:50 Percocet Tablet 5/325mg PO 06/19/20 20:51 STAT STA - Progress Progress: improved, pain not gone completely, re-examined Progress Note: 06/19/20 21:17 X-ray right wrist and forearm reveals a nondisplaced distal radius fracture as well as a styloid process fracture. 06/19/20 21:17 Post splint neurovascular exam is intact. Counseled pt/family regarding: diagnosis, need for follow-up, rad results - Departure Departure Disposition: Home Clinical Impression: Closed fracture of right radius and ulna Condition: Stable Critical Care Time: No Referrals: GONSALO LEMUS [Primary Care Provider] - [facility] [phone] Additional Instructions: Keep your wrist in a splint. Ice pack to area 3 times a day. Follow-up tomorrow with [facility] orthopedic clinic for evaluation and further management. Take your medication as prescribed.
[2020-06-19 20:36] VITALS: PULSE 64
[2020-06-19] MEDS ORDERED: PERCOCET TABLET 5/325MG PO STA (20:50)
[2020-06-19] MEDS ORDERED: NORCO 5/325 MG PO ONE (20:50)
[2020-06-19] MEDS ORDERED: PERCOCET TABLET 5/325MG ONE (21:16)
[2020-06-19] MEDS ORDERED: NORCO 5/325 MG ONE (21:16)
[2020-06-19 21:21] VITALS: O2SAT 100
[2020-06-19 21:50] VITALS: BP 187/98
--- NOTE | 2020-06-20 09:27 | XRAY ---
Indication: Pain following fall. Comparison: None 2 view right forearm demonstrates minimally displaced corner fracture distal radius laterally with intra-articular extension, nondisplaced ulnar styloid fracture, and soft tissue swelling. Incidental old 5th metacarpal fracture, base 1st metacarpal degenerative changes, small coronoid process spur, and osteopenia.
--- NOTE | 2020-06-20 09:29 | XRAY ---
Indication: Pain following fall. Comparison: January 09, 2008. 3 view right wrist demonstrates new minimally displaced distal radius fracture with intra-articular extension, nondisplaced ulnar styloid fracture, and soft tissue swelling. Stable incidental osteopenia, old 5th metacarpal fracture, and base 1st metacarpal degenerative changes.
== END 2020-06-19 21:50 | disposition home or self-care (01) ==
LOC: ED 19:55
DX: S52.91XA Unspecified fracture of right forearm, initial encounter for closed fracture (principal); S52.611A Displaced fracture of right ulna styloid process, initial encounter for closed fracture; W01.0XXA Fall on same level from slipping, tripping and stumbling without subsequent striking against object, initial encounter; Z79.899 Other long term (current) drug therapy; I10 Essential (primary) hypertension
CPT/HCPCS: 25605; 73090; 73110; 99284; A9270-GY

== ENCOUNTER 2022-10-02 17:58 | Emergency (ER) | payer MEDICARE ==
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
[2022-10-02] MEDS ORDERED: Adacel Vial IM ONE ×2 (18:38→18:39)
[2022-10-02 20:11] VITALS: BP 148/86; PULSE 90
[2022-10-02 20:14] VITALS: O2SAT 95
--- NOTE | 2022-10-02 20:17 | XRAY ---
CLINICAL HISTORY:Tender left wrist after the fall. COMPARISON:None. TECHNIQUES:X-ray of left wrist; AP, oblique, and lateral views. FINDINGS: Overall decreased bone density. There is a transverse radiolucency in the distal third of the radius, consistent with an impacted fracture. Well-corticated ossified density was seen adjacent to the ulnar styloid, probably related to prior bony insult versus os triangulare. Articular margins are intact. Normal radiocarpal space and carpometacarpal joint spaces. Soft tissues appear swollen in the wrist. IMPRESSION: Osteopenia. Non-displaced impacted fracture of the distal radius. DISCLAIMER: A subtle bone abnormality or fracture may not be readily apparent on x-rays, thus clinical correlation and further imaging including follow-up CT, MRI, or follow-up x-rays are advised as needed. The [facility] department office was called at [phone] Ext: [phone] at 06:25 PM DATA SME, 10/02/2022 and the results are verbally communicated with Caroline. Electronically Signed by: Carlitos Junior MD. ( 10/02/2022 18:33:24 DATA SME)
[2022-10-02] MEDS ORDERED: NORCO 5/325 MG PO ONE (20:18)
[2022-10-02] MEDS ORDERED: NORCO 5/325 MG ONE (20:23)
== END 2022-10-02 20:34 | disposition home or self-care (01) ==
LOC: ED 17:58
DX: S52.502A Unspecified fracture of the lower end of left radius, initial encounter for closed fracture (principal); W01.0XXA Fall on same level from slipping, tripping and stumbling without subsequent striking against object, initial encounter; I10 Essential (primary) hypertension; Z79.891 Long term (current) use of opiate analgesic; Z79.899 Other long term (current) drug therapy
CPT/HCPCS: 73110; 90471; 90715; 99283; L3908; A9270-GY